=== PATIENT | female | born 1975 | race Two or more races ===

== ENCOUNTER 2016-10-19 12:16 | Emergency (ER) | payer BC ==
[~2016-10-19] VITALS: Ht 154.9 cm; Wt 66.2 kg
[2016-10-19 12:28] VITALS: BP 128/87
== END 2016-10-19 13:04 | disposition left against medical advice (07) ==
LOC: ER 12:16
DX: R51 Headache (principal); M79.1 Myalgia; Z53.21 Procedure and treatment not carried out due to patient leaving prior to being seen by health care provider; V49.69XA Unspecified car occupant injured in collision with other motor vehicles in traffic accident, initial encounter; Y93.89 Activity, other specified; Y99.8 Other external cause status; Y92.410 Unspecified street and highway as the place of occurrence of the external cause